=== PATIENT | female | born 1960 | race Caucasian/White ===

== ENCOUNTER 2017-12-21 18:51 | Emergency (ER) | payer OTHER, SELFPAY ==
[2017-12-21 19:03] VITALS: BP 134/102; PULSE 130; RESP 19; O2SAT 98
--- NOTE | 2017-12-21 19:16 | ED.RN ---
PT PRESENTS TO ED WITH REDDENED SCALY RASH THROUGHOUT BODY, FACIAL EDEMA. PT REPORTS NO DIFFICULTY BREATHING BUT ITCHY MOUTH. PT REPORTS TAKING 2 BENADRYL AT [employer] [employer]. PT UNSURE WHAT SHE IS HAVING A REACTION TOO. REPORTS THIS HAS BEEN HAPPENING INTERMITTENTLY FOR 2 MONTHS, BUT SHE HAS NOT BEEN EVALUATED FOR IT. PT DENIES SOB OF DIFFICULTY BREATHING AT THIS TIME. WILL CONTINUE TO MONITOR.
[2017-12-21] MEDS: MethylPREDNISolone 125 MG/2 ML Vial IV (19:19)
[2017-12-21] MEDS: DiphenhydrAMINE 50 MG/ML Syringe 25 MG IV (19:19)
[2017-12-21] MEDS: 0.9% Normal Saline 1,000 ML 150 ML IV (19:19)
--- NOTE | 2017-12-21 19:29 | EKG12_ITS ---
Test Reason : ALLERGIC REACTION Blood Pressure : / mmHG Vent. Rate : 115 BPM Atrial Rate : 258 BPM P-R Int : 000 ms QRS Dur : 080 ms QT Int : 336 ms P-R-T Axes : 000 -04 -11 degrees QTc Int : 464 ms Atrial fibrillation Abnormal ECG Confirmed by SHOAIB BLANKENSHIP MD ([id number]), state editor KB ESPINO ([id number] on 12/24/2017 1:24:18 PM Referred By: KRISTINA Confirmed By:SHOAIB BLANKENSHIP MD
[2017-12-21 19:44] LABS: Absolute Lymphocyte Count 2.65 X10^3/ul (0.83-4.51); Absolute Neutrophil Count 3.1 X10^3/uL (2.0-7.7); Eosinophil# 0.05 X10^3/uL; Eosinophils% 0.8 % (0-5); Hematocrit 50.8 % (37-47); Hemoglobin 16.4 g/dl (12.0-15.0); Lymphocyte # 2.65 X10^3/ul (4.0); Mean Corp Hgb Conc 32.3 g/gl (32-36); Mean Corpuscular Hgb 28.2 pg (27.0-32.0); Mean Corpuscular Volume 87.4 fL (81-99); Mean Platelet Vol. 10.6 fl (6.2-12.0); Monocyte# 0.68 X10^3/uL; Monocyte% 10.5 % (0-10); Neutrophil # 3.08 X10^3/uL (2.7-7.7); Neutrophil % 47.5 % (47-70); Platelet Count 233 K/mm3 (150-450); RBC Distribution Width CV 13.8 % (11.6-14.6); RBC Distribution Width SD 43.7 fl (35.1-43.9); Red Blood Count 5.81 M/mm3 (4.2-5.4); White Blood Count 6.5 K/mm3 (4.4-11.0)
[2017-12-21 19:46] LABS: POSITIVE COUNT NO; POSITIVE DIFFERENTIAL NO; POSITIVE MORPHOLOGY NO
[2017-12-21 19:52] LABS: Anion Gap 8 (5-15); BUN 17 mg/dL (7-18); BUN/Creat Ratio 20.6 RATIO (10-20); Calcium,Total 8.9 mg/dL (8.5-10.1); Chloride 104 mmol/L (98-107); Creatinine, Serum 0.83 mg/dL (0.55-1.02); EST Glomerular Filtration Rate 76 mL/min (>60); Est Glom Filt Rate - Afr Amer 92 mL/min (>60); Estimated Creatinine Clearance 66.13 ml/min; Glucose 109 mg/dL (74-106); Potassium 3.9 mmol/L (3.5-5.1); Sodium Level 141 mmol/L (136-145)
[2017-12-21 20:07] VITALS: BP 115/63; PULSE 118; RESP 20; O2SAT 98
[2017-12-21 20:28] LABS: Thyroid Stim Hormone (TSH) 2.69 uIU/mL (0.358-3.74)
--- NOTE | 2017-12-21 20:30 | ED.VISSUMM ---
- ER Visit Summary Date of Service: 12/21/17 Chief Complaint: Allergic reaction History of Present Illness: The patient is a 57 F who started itching around 4 PM today and around 5:00 developed hives and swelling on her face. She states she did take a dose of Benadryl around 5 PM. She was seen here at nearly 7:00 for evaluation. She denies any tongue edema or difficulty swallowing. She states she has had 2 prior similar episodes. They thought she may have been allergic to pineapple in the past. She was eating blueberries today. Physical Examination: Blood pressure is 134 102, heart rate 130, respiratory rate 19, pulse ox 98% on room air. Patient sitting upright in bed. She is answering questions. Head neck examination does reveal facial edema especially on the eyelids and the lips. There is no tongue edema. She is tolerating secretions well and has a strong voice. Heart is tachycardic and slightly irregular. Lung sounds are clear. Abdomen is soft nontender. Skin examination reveals hives over the upper chest. Test Results: Patient was placed on alarm security or surveillance monitor and noted to have irregular heart rate jumping from 115-150. EKG was obtained and reveals atrial fibrillation with a rate of 115. There is no sign of acute ischemia. CBC is significant only for hemoglobin concentrated at 16.4. Chemistry studies normal. Troponin and TSH are both normal. Emergency Department Course and Treatment: Patient was given Solu-Medrol, Pepcid, Benadryl, and IV fluids. She has been rechecked multiple times and symptoms are slowly improving. She continues to have no throat tightness or tongue swelling. Patient denies known history of atrial fibrillation. She does state that there have been times in the past where she feels like her heart is racing and beating irregularly. She will be admitted for further workup of her new onset A. fib and watched for her allergic reaction. She is ordered a dose of Lopressor 5 mg IV at this time. Treatment Plan: [] Disposition: Admit Impression: 1. Allergic reaction 2. New onset A. fib/A. fib RVR Addendum: Hospitalist presented to the emergency room to evaluate the patient. She states to him that she wishes to leave the emergency room AMA. She refuses hospital admission. I went back and spoke with her at length. I expressed my concern about her new onset atrial fibrillation and not having this fully evaluated. She continues to refuse admission. I did speak with Dr. Falk, on-call for the patient's primary care physician Dr Mahmood. Patient is to be started on Eliquis 5 mg twice daily metoprolol 50 mg. Patient is to follow-up with her doctor on Saturday or Saturday. This was discussed with the patient and she seems quite reluctant to take any these medications. I advised her that I can only write the prescriptions for her and encouraged her to take them. I did express to her multiple times that my concern is that she may develop a stroke secondary to untreated atrial fibrillation. She voices her understanding and agreement. Patient refuses prednisone for her allergic reaction. Disposition: discharge AMA This note was generated with [employer] dictation software. It may contain incorrect words, spelling, and punctuation that were not noted in review of the chart prior to signing ED Disposition - Plan for ED Patient: Disposition: Home or Assisted Living Chief Complaint: Allergic Reaction Instructions: ED Afib, ED Allergic Reaction General Other Prescriptions: Metoprolol(XL)Succ [Toprol Xl (Beta Amanda)] 50 mg PO DAILY #30 tablet Apixaban [Eliquis] 5 mg PO BID #60 tablet Referrals: Barrie Mahmood MD [Primary Care Provider] - 2 Days
[2017-12-21] MEDS: Metoprolol Tartrate 5 MG/5 ML Vial IV (20:37)
--- NOTE | 2017-12-21 21:11 | NURSING ---
PAGED DR. GOTTI MILK DRIER FOR [facility]
[2017-12-21 21:17] VITALS: BP 115/93; PULSE 111; O2SAT 97
--- NOTE | 2017-12-21 21:20 | ED.DEP ---
ED Disposition - Plan for ED Patient: Disposition: Home or Assisted Living Chief Complaint: Allergic Reaction Instructions: ED Allergic Reaction General Other, ED Afib Prescriptions: Metoprolol(XL)Succ [Toprol Xl (Beta Amanda)] 50 mg PO DAILY #30 tablet Apixaban [Eliquis] 5 mg PO BID #60 tablet Referrals: Barrie Mahmood MD [Primary Care Provider] - 2 Days
--- NOTE | 2017-12-21 21:23 | ED.RN ---
MD AWARE PT REFUSING LOVENOX.
[2017-12-21 21:31] VITALS: BP 115/93; PULSE 110; RESP 20; O2SAT 96
== END 2017-12-21 21:31 | disposition home or self-care (01) ==
PROVIDERS: Emergency Provider Emergency Medicine; Family Provider Family Medicine; PCP Family Medicine
DX: T78.1XXA Other adverse food reactions, not elsewhere classified, initial encounter (principal); X58.XXXA Exposure to other specified factors, initial encounter; I48.91 Unspecified atrial fibrillation
CPT/HCPCS: 80048; 84443; 84484; 85025; 93005; 99284; J7030; A4216; J3490